=== PATIENT | female | born 1965 | race Native Hawaiian/Other Pacific Islander ===

== ENCOUNTER 2018-01-02 14:40 | Emergency (ER) | payer OTHER ==
[2018-01-02 15:20] VITALS: BP 112/70; PULSE 59; RESP 17; TEMP 98.3; O2SAT 99
[2018-01-02] MEDS ORDERED: Tetrahydrozoline Opht 0.05% Sol (15 ml) OS STA (15:30)
[2018-01-02] MEDS ORDERED: Fluorescein 1 mg Ophthalmic Strip OU ONE (15:32)
[2018-01-02] MEDS ORDERED: Tetracaine 0.5% Ophth 2 ML BOTTLE OU ONE (15:33)
[2018-01-02] MEDS ORDERED: Tetracaine 0.5% Ophth (OR ONLY) ONE (15:36)
[2018-01-02] MEDS ORDERED: Fluorescein 1 mg Ophthalmic Strip ONE (15:38)
--- NOTE | 2018-01-02 16:01 | C.PDOC ---
History Of Present Illness 52yo female, comes to ER for evaluation of left eye pain. Patient states she feels a foreign body is in her eye. Otherwise, denies any trauma, injury, vision loss in her eye. Time Seen by Provider: 01/02/18 15:27 Chief Complaint (Nursing): Eye Problem History Per: Patient History/Exam Limitations: no limitations Onset/Duration Of Symptoms: Days Current Symptoms Are (Timing): Still Present Quality: "Pain" Associated Symptoms: FB Sensation Additional History Per: Patient Past Medical History Reviewed: Historical Data, Nursing Documentation, Vital Signs Vital Signs: Last Vital Signs Temp 98.3 F 01/02/18 15:16 Pulse 59 L 01/02/18 15:16 Resp 17 01/02/18 15:16 BP 112/70 01/02/18 15:16 Pulse Ox 99 01/02/18 16:27 - Medical History PMH: No Chronic Diseases Surgical History: No Surg Hx Family History: States: No Known Family Hx - Social History Hx Alcohol Use: No Hx Substance Use: No - Immunization History Hx Tetanus Toxoid Vaccination: Yes (2016) Hx Influenza Vaccination: No Hx Pneumococcal Vaccination: Yes (2017) Review Of Systems Eyes: Positive for: Pain (left), Other (foreign body sensation left eye). Negative for: Vision Change Physical Exam - Physical Exam Appears: Non-toxic Skin: Warm, Dry Head: Normacephalic Eye(s): bilateral: PERRL, EOMI, left: Other (foreign body noted on left eye) Neurological/Psych: Oriented x3 ED Course And Treatment O2 Sat by Pulse Oximetry: 99 (RA) Pulse Ox Interpretation: Normal Progress Note: Case discussed with Dr. Ochoa, who states he will see patient in his office immediately. Plan of care discussed with patient, who is agreeable. Medical Decision Making Medical Decision Making: slit shows ?foreign body in left eye. case discussed wtih dr fermin. can see pt right now in office. pt instructed to go to ophto office. Disposition - Disposition Referrals: Raz Ochoa [Staff Provider] - Disposition: HOME/ ROUTINE Disposition Time: 15:59 Condition: STABLE Additional Instructions: follow up with optho right now: [address], [place] [address]. please call [phone] Instructions: Foreign Body in Eye Forms: Your Body [employer] (Lithuanian) - Clinical Impression Clinical Impression: Eye foreign body - Scribe Statement The provider has reviewed the documentation as recorded by the Lalaibe Lorena Weaver Provider Attestation: All medical record entries made by the Lalaibe were at my direction and personally dictated by me. I have reviewed the chart and agree that the record accurately reflects my personal performance of the history, physical exam, medical decision making, and the department course for this patient. I have also personally directed, reviewed, and agree with the discharge instructions and disposition.
== END 2018-01-02 16:10 | disposition home or self-care (01) ==
LOC: C.ER 14:40
DX: T15.92XA Foreign body on external eye, part unspecified, left eye, initial encounter (principal); X58.XXXA Exposure to other specified factors, initial encounter